=== PATIENT | male | born 1995 | race Caucasian/White ===

== ENCOUNTER 2020-12-10 14:53 | Emergency (ER) | payer OTHER ==
[~2020-12-10] VITALS: Ht 170.2 cm; Wt 70.8 kg
--- NOTE | 2020-12-10 15:15 | NUR ---
[facility] [employer]. TO ER BED 10. AAOX4. NOT IN RESP DISTRESS, BRETHING EVEN AND UNLABORED. AMBULATORY. CAME IN FOR HEAD PAIN S/P GLASS PANEL FELL ON HIS HEAD. PT REPORTS HE "BLACKED OUT" FOR A SECOND. NO NOTED INJURY. AWAITING MD FOR EVAL.
[2020-12-10] MEDS ORDERED: IBUP-1955 PO ×2 (16:35→16:38)
--- NOTE | 2020-12-10 17:10 | NUR ---
Patient discharged to home in stable condition. Written and verbal after care instructions given. Patient verbalizes understanding of instruction.
[2020-12-10 17:54] VITALS: BP 119/72
== END 2020-12-10 17:10 | disposition home or self-care (01) ==
LOC: ER 14:57
DX: S06.0X0A Concussion without loss of consciousness, initial encounter (principal); Z60.2 Problems related to living alone; W20.8XXA Other cause of strike by thrown, projected or falling object, initial encounter; Y93.89 Activity, other specified; Y92.89 Other specified places as the place of occurrence of the external cause; Y99.8 Other external cause status
CPT/HCPCS: 70450-TC